=== PATIENT | female | born 1970 | race Caucasian/White ===

== ENCOUNTER → 2023-12-13 07:27 | Outpatient (CLI) | payer BC, SELFPAY | LOC: SL 08:02 | PROVIDERS: PCP Physician Assistant; Visit Provider Physician Assistant | DX: R06.89 Other abnormalities of breathing (principal) | CPT/HCPCS: G0399 ==

== ENCOUNTER 2023-12-26 10:32 | Outpatient (CLI) | payer BC, SELFPAY ==
--- NOTE | 2023-12-26 10:39 | XR_ITS ---
FINAL REPORT CLINICAL HISTORY: INJURY OF RT ANKLE FINDINGS: Right ankle Three views were obtained. There is no acute fracture or dislocation. There are mild degenerative changes. No soft tissue abnormality is identified. IMPRESSION: Mild degenerative changes. Reviewed, Interpreted and Dictated by Kelvin Parkinson III, MD Transcribed by Harini Samson Authenticated and [facility]
== END 2023-12-26 23:59 | disposition home or self-care (01) ==
PROVIDERS: PCP Physician Assistant; Visit Provider Physician Assistant
DX: S99.911A Unspecified injury of right ankle, initial encounter (principal)
CPT/HCPCS: 73610